=== PATIENT | male | born 1950 | race Caucasian/White ===

== ENCOUNTER 2022-07-07 14:22 | Outpatient (REF) | payer MEDICARE, SELFPAY ==
[2022-07-07 16:42] LABS: PSA Diagnostic* < 0.06 ng/mL (0.10-4.00)
== END 2022-07-07 14:23 | disposition home or self-care (01) ==
LOC: NPINS 14:22
PROVIDERS: PCP Physician Assistant Medical; Visit Provider Urology
DX: E11.9 Type 2 diabetes mellitus without complications (principal); E78.5 Hyperlipidemia, unspecified; I10 Essential (primary) hypertension; Z12.5 Encounter for screening for malignant neoplasm of prostate
CPT/HCPCS: 80053; 80061; 82043; 82570; 84153

== ENCOUNTER 2022-10-08 12:46 | Outpatient (REF) | payer MEDICARE, SELFPAY ==
[2022-10-08 14:38] LABS: PSA Screen* < 0.06 ng/mL (0.10-4.00)
== END 2022-10-08 12:47 | disposition home or self-care (01) ==
LOC: LAB 12:46
PROVIDERS: PCP Physician Assistant Medical; Visit Provider Urology
DX: C61 Malignant neoplasm of prostate (principal)
CPT/HCPCS: 36415; 84153; 84154

== ENCOUNTER 2023-03-03 13:26 | Outpatient (CLI) | payer MEDICARE, SELFPAY ==
[2023-03-03 14:45] VITALS: BP 154/76; PULSE 82; RESP 18
--- NOTE | 2023-03-03 14:59 | W.PM.STED ---
Stress Test Note Date Date of test: 03/03/23 Providers Referring provider: Ailyn Marcus Primary care provider: Jason Eastman Stress test physician: Krishna Mock Stress Test Note Stress test ordered: Stress Echo Indication for test: Dyspnea Stress test medicine: None Results discussion: Patient is a very nice 72-year-old gentleman who presents for a stress echo, after discussion the risks benefits side effects he would like to proceed, pretest EKG normal sinus rhythm, with a ventricular rate of 65 and a blood pressure 132/75. Following standard Adalberto protocol, patient is exercised for a total time of 6 minutes 10 seconds with a maximum heart rate 118 which is 93% of the maximum, test is terminated because of fatigue, and shortness of breath. There was ST wave changes of depression noted a 3 mm noted laterally from V3 through V6, and inferiorly to a lesser degree. There is no dysrhythmias. Impression: Positive stress test with the inferior lateral changes, suggestive of his anemia, patient recovered normal Follow up suggested: Await echo images once reviewed by Cardiology, clinical correlation with these will be needed. Patient left this testing facility in excellent condition
== END 2023-03-03 14:54 | disposition home or self-care (01) ==
LOC: STRESS 13:26
PROVIDERS: PCP Physician Assistant Medical; Visit Provider Family Medicine
DX: R06.09 Other forms of dyspnea (principal); R06.02 Shortness of breath; R01.1 Cardiac murmur, unspecified
CPT/HCPCS: 93016; 93325; 93351

== ENCOUNTER 2023-07-13 22:33 | Outpatient (REF) | payer MEDICARE, SELFPAY ==
[2023-07-14 00:14] LABS: PSA Diagnostic* 0.16 ng/mL (0.10-4.00)
== END 2023-07-13 22:34 | disposition home or self-care (01) ==
LOC: NPINS 22:33
PROVIDERS: PCP Physician Assistant Medical; Visit Provider Urology
DX: I10 Essential (primary) hypertension (principal); E78.5 Hyperlipidemia, unspecified; E11.9 Type 2 diabetes mellitus without complications; C61 Malignant neoplasm of prostate; K76.0 Fatty (change of) liver, not elsewhere classified; N52.9 Male erectile dysfunction, unspecified; Z79.4 Long term (current) use of insulin
CPT/HCPCS: 82043; 82570; 84153; 84156

== ENCOUNTER 2023-09-10 10:16 | Outpatient (CLI) | payer MEDICARE, SELFPAY ==
--- NOTE | 2023-09-10 11:37 | W.ANESCHARGE ---
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
--- NOTE | 2023-09-10 11:41 | W.ANESCHARGE ---
Anesthesia Charges Start Date/Time Anesthesia Start Date: 09/10/23 Anesthesia Start Time: 11:10 Stop Date/Time Anesthesia Stop Date: 09/10/23 Anesthesia Stop Time: 11:40 Summary Extremes of Age - Over 70 or under 1: MDA
== END 2023-09-10 10:17 | disposition home or self-care (01) ==
LOC: OP CLINIC 10:17
PROVIDERS: PCP Physician Assistant Medical; Visit Provider Internal Medicine
DX: Z12.11 Encounter for screening for malignant neoplasm of colon (principal); Z86.010 Personal history of colon polyps; D12.8 Benign neoplasm of rectum
CPT/HCPCS: 00811; 45380; 88305; 99100; J2704

== ENCOUNTER 2023-09-14 13:56 | Outpatient (REF) | payer MEDICARE, SELFPAY ==
[2023-09-14 15:46] LABS: PSA Diagnostic* 0.18 ng/mL (0.10-4.00)
== END 2023-09-14 13:57 | disposition home or self-care (01) ==
LOC: NPINS 13:56
PROVIDERS: PCP Physician Assistant Medical; Visit Provider Urology
DX: C61 Malignant neoplasm of prostate (principal)
CPT/HCPCS: 84153

== ENCOUNTER 2024-03-14 13:42 | Outpatient (REF) | payer MEDICARE, SELFPAY ==
[2024-03-14 14:46] LABS: PSA Diagnostic* < 0.06 ng/mL (0.10-4.00)
== END 2024-03-14 13:43 | disposition home or self-care (01) ==
LOC: NPINS 13:42
PROVIDERS: PCP Family Medicine; Visit Provider Urology
DX: C61 Malignant neoplasm of prostate (principal)
CPT/HCPCS: 80053; 80061; 84153; G0103

== ENCOUNTER 2024-03-21 08:28 | Outpatient (CLI) | payer MEDICARE, SELFPAY | END 2024-03-21 08:29 | disposition home or self-care (01) | LOC: FRMREF 08:28 | PROVIDERS: PCP Family Medicine; Visit Provider Family Medicine | DX: Z00.00 Encounter for general adult medical examination without abnormal findings (principal); I10 Essential (primary) hypertension; E78.2 Mixed hyperlipidemia; E11.65 Type 2 diabetes mellitus with hyperglycemia; Z13.1 Encounter for screening for diabetes mellitus; Z79.4 Long term (current) use of insulin; C61 Malignant neoplasm of prostate | CPT/HCPCS: 82043; 82570 ==

== ENCOUNTER 2024-03-22 10:13 | Outpatient (CLI) | payer MEDICARE, SELFPAY ==
[2024-03-22 11:05] VITALS: BP 174/72; PULSE 79
--- NOTE | 2024-03-22 11:35 | W.PM.STED ---
Stress Test Note Date Date Seen: 03/22/24 Date of test: 03/22/24 Providers Referring provider: Ailyn Marcus Primary care provider: Ailyn Marcus Stress test physician: Linda Hope Stress Test Note Stress test ordered: Exercise Stress Test Indication for test: Exertional chest pain Stress test medicine: None Results discussion: Resting EKG: Sinus rhythm, 71 beats per minute. Some artifact noted. Resting blood pressure: 136/78 Stress test: Patient was exercised on the treadmill following standard Adalberto protocol after consent for the stress test obtained. Patient was able to exercise 6 minutes 8 seconds, requesting to stop as he had med is heart rate and was reaching his exercise capacity. He did feel short of breath but did not feel that this was out of the level he would be experiencing for his level of exercise. He had no recurrent chest symptoms. He had an equivalent of 7.3 Mets. He did reach a maximum heart rate of 124 beats per minute which was his calculated target heart rate. He had a maximal blood pressure 190/80, rate pressure product 23,180. There was no arrhythmia, no diagnostic evidence of any ischemic change. He had return to baseline of his ST segments in appropriate time. Impression: Subjectively negative, objectively negative treadmill stress test. Hypertensive response to exercise. Follow up suggested: Patient is advised that he did have hypertensive response with exercise and should continue to work on his blood pressure management with his primary provider. He notes since he has stopped his lisinopril he has not had any of the exertional episodes of chest discomfort he was having. They will need to work on different regimen of medication for him through his primary care provider. If there is further concern of chest pain, stress echo or treadmill Myoview could be considered verses cardiology consultation. Patient is discharged from the stress test in stable condition.
== END 2024-03-22 10:14 | disposition home or self-care (01) ==
LOC: STRESS 10:13
PROVIDERS: PCP Family Medicine; Visit Provider Family Medicine
DX: R07.9 Chest pain, unspecified (principal)
CPT/HCPCS: 93016; 93017

== ENCOUNTER 2024-03-28 08:30 | Outpatient (CLI) | payer MEDICARE, SELFPAY | END 2024-03-28 08:31 | disposition home or self-care (01) | LOC: RAD 08:31 | PROVIDERS: PCP Family Medicine; Visit Provider Family Medicine | DX: R06.02 Shortness of breath (principal); I35.0 Nonrheumatic aortic (valve) stenosis; R07.9 Chest pain, unspecified; I10 Essential (primary) hypertension; E78.2 Mixed hyperlipidemia; E11.65 Type 2 diabetes mellitus with hyperglycemia; Z79.4 Long term (current) use of insulin | CPT/HCPCS: 93306 ==

== ENCOUNTER 2024-06-27 14:36 | Outpatient (REF) | payer MEDICARE, SELFPAY ==
[2024-06-29 21:25] LABS: Prostate Specific Antigen Free <0.1 ng/mL; Prostate Specific AntigenTotal <0.1 ng/mL (0.0-4.0)
== END 2024-06-27 14:37 | disposition home or self-care (01) ==
LOC: NPINS 14:36
PROVIDERS: PCP Family Medicine; Visit Provider Urology
DX: C61 Malignant neoplasm of prostate (principal); E11.65 Type 2 diabetes mellitus with hyperglycemia; I35.0 Nonrheumatic aortic (valve) stenosis; R07.9 Chest pain, unspecified; E78.5 Hyperlipidemia, unspecified; I10 Essential (primary) hypertension; N52.9 Male erectile dysfunction, unspecified; Z79.4 Long term (current) use of insulin; Z48.89 Encounter for other specified surgical aftercare
CPT/HCPCS: 80053; 80061; 84153; 84154; 84484

== ENCOUNTER 2024-09-12 14:57 | Outpatient (REF) | payer MEDICARE, SELFPAY ==
[2024-09-14 21:48] LABS: Prostate Specific Antigen Free <0.1 ng/mL; Prostate Specific AntigenTotal <0.1 ng/mL (0.0-4.0)
[2024-09-15 00:04] LABS: Testosterone, Adult Male 16 ng/dL (300-720)
== END 2024-09-12 14:58 | disposition home or self-care (01) ==
LOC: NPINS 14:57
PROVIDERS: PCP Family Medicine; Visit Provider Urology
DX: Z85.46 Personal history of malignant neoplasm of prostate (principal)
CPT/HCPCS: 84153; 84154; 84403

== ENCOUNTER 2025-03-13 07:53 | Outpatient (CLI) | payer MEDICARE, SELFPAY | END 2025-03-13 07:54 | disposition home or self-care (01) | PROVIDERS: PCP Family Medicine; Visit Provider Family Medicine | DX: I35.0 Nonrheumatic aortic (valve) stenosis (principal); E78.5 Hyperlipidemia, unspecified | CPT/HCPCS: 80061; 93306 ==

== ENCOUNTER 2025-03-13 09:29 | Outpatient (CLI) | payer MEDICARE, SELFPAY ==
[2025-03-13 14:17] LABS: Cholesterol* 122 mg/dL (90-199); Triglycerides* 135 mg/dL (40-149)
[2025-03-13 14:18] LABS: HDL Cholesterol* 41 mg/dL (>=40)
[2025-03-14 08:27] LABS: Testosterone, Adult Male 62 ng/dL (300-720)
== END 2025-03-13 09:30 | disposition home or self-care (01) ==
LOC: NPINS 09:37
PROVIDERS: Physician Assistant; PCP Family Medicine; Visit Provider Urology
DX: Z12.5 Encounter for screening for malignant neoplasm of prostate (principal); C61 Malignant neoplasm of prostate
CPT/HCPCS: 80061; 84403

== ENCOUNTER 2025-03-13 12:53 | Outpatient (CLI) | payer MEDICARE, SELFPAY | END 2025-03-13 12:54 | disposition home or self-care (01) | LOC: FRMREF 12:54 | PROVIDERS: PCP Family Medicine; Visit Provider Family Medicine | DX: Z12.5 Encounter for screening for malignant neoplasm of prostate (principal) | CPT/HCPCS: G0103 ==

== ENCOUNTER 2025-05-15 09:21 | Outpatient (CLI) | payer MEDICARE, SELFPAY | END 2025-05-15 09:22 | disposition home or self-care (01) | LOC: NFLDREF 05-18 16:21 | PROVIDERS: PCP Family Medicine; Referring Provider Family Medicine; Visit Provider Family Medicine | DX: E11.65 Type 2 diabetes mellitus with hyperglycemia (principal); Z79.4 Long term (current) use of insulin | CPT/HCPCS: 82043; 82570 ==

== ENCOUNTER 2025-09-04 07:34 | Outpatient (CLI) | payer MEDICARE, SELFPAY | END 2025-09-04 07:35 | disposition home or self-care (01) | PROVIDERS: PCP Family Medicine; Visit Provider Family Medicine | DX: E11.65 Type 2 diabetes mellitus with hyperglycemia (principal); Z79.4 Long term (current) use of insulin; C61 Malignant neoplasm of prostate; I10 Essential (primary) hypertension; E78.2 Mixed hyperlipidemia | CPT/HCPCS: 80053; 80061; 82607; 84443; G0103 ==

== ENCOUNTER 2025-09-04 08:57 | Outpatient (CLI) | payer MEDICARE, SELFPAY ==
[2025-09-04 15:23] LABS: PSA Diagnostic* < 0.06 ng/mL (0.10-4.00)
[2025-09-05 19:24] LABS: Testosterone, Adult Male 77 ng/dL (300-720)
== END 2025-09-04 08:58 | disposition home or self-care (01) ==
LOC: NPINS 08:58
PROVIDERS: Urology; PCP Family Medicine; Visit Provider Physician Assistant
DX: C61 Malignant neoplasm of prostate (principal); E11.65 Type 2 diabetes mellitus with hyperglycemia; I10 Essential (primary) hypertension; E78.2 Mixed hyperlipidemia; N52.9 Male erectile dysfunction, unspecified; K76.0 Fatty (change of) liver, not elsewhere classified; Z79.4 Long term (current) use of insulin
CPT/HCPCS: 80053; 80061; 82607; 84153; 84403; 84443